=== PATIENT | female | born 1940 | race Two or more races ===

== ENCOUNTER 2024-08-09 10:51 | Day surgery (SDC) | payer OTHER, SELFPAY ==
[2024-08-09] VITALS (13 sets, daily range): BP systolic 104–187; BP diastolic 47–120; BMI 28.3
[2024-08-09 11:19] LABS: Hematocrit 36.5 % (37.0-47.0); Hemoglobin 12.1 g/dL (12.0-16.0); Mean Corp Hgb Conc. 33.2 g/dL (33.0-37.0); Mean Corpuscular Hgb 30.7 pg (27.0-31.0); Mean Corpuscular Volume 92.6 fL (81.0-99.0); Mean Platelet Volume 9.8 fL (7.4-10.4); Platelet Count 201 10^3/uL (130-400); Red Blood Cell Count 3.94 10^6/uL (4.20-5.40); Red Cell Dist. Width 12.8 % (11.5-14.5); White Blood Cell Count 6.4 10^3/uL (4.8-10.8)
[2024-08-09 11:33] LABS: Albumin 4.2 g/dl (3.5-5.0); Carbon Dioxide 30 mmol/L (22-30); Estimated Creatinine Clearance 65 ml/min; Glucose 105 mg/dl (70-99); Total Bilirubin 1.5 mg/dl (0.2-1.3); Total Protein 7.2 g/dl (6.3-8.2); eGFR > 60.00
[2024-08-09 11:34] LABS: ALT (SGPT) 14 U/L (0-35); AST (SGOT) 18 U/L (14-36); Alkaline Phosphatase 93 U/L (38-126); Blood Urea Nitrogen 16 mg/dl (7-17); Calcium 9.8 mg/dl (8.4-10.2); Chloride 104 mmol/L (98-107); Potassium 4.5 mmol/L (3.5-5.1); Sodium 141 mmol/L (135-145)
--- NOTE | 2024-08-09 14:39 | ITS.CL.PACE ---
[employer] - Pacemaker Implant
Pacemaker Implant
Procedure Report:
Date of Procedure: August 09, 2024
Patient : [id number]
Procedure: Pacemaker Implantation.
Indication: Sinoatrial exit block as well as unexplained syncope and presyncope documented heart rate at 30 bpm
�
Implants:
Pulse Generator: Medtronic; Model# W1 DR 01; SN: [id number]
RA Lead: Medtronic; Model# 4574; SN: [id number]
RV Lead: Medtronic; Model# 4074; SN: [id number]
�
Technique: A time out was performed. The procedure site was identified. The patient was anesthetized by the anesthesia service. Preoperative sedation was administered. The patient was prepped and draped in the usual fashion. Local anesthetic was
applied to the right prepectoral subcutaneous tissue. A 3 inch incision was made 2.5 inches below the right clavicle. A subcutaneous pocket was created with blunt and sharp dissection and hemostasis controlled with Bovie cautery. The right axillary
vein was accessed within the pocket without difficulty. Hemostasis was excellent. The leads were introduced with 7 Fr hemostatic peel away introducer sheaths. The ventricular lead was placed at the right ventricular apex. The atrial lead was placed
in the right atrial appendage. 10 volt pacing did not capture the diaphragm. The leads were secured to the pectoralis muscle and fascia. The leads were appropriately attached to the device. The pocket was irrigated with antibiotic solution. The
device and leads were placed in the pocket. The incision was closed in three layers with absorbable suture. The estimated blood loss was minimal. There were no complications.��
Fluoroscopy: 9.3 minutes 22.15 mGy
Lead Analysis:
RA lead: P: 1.8 mV; Threshold: 0.75 V @ 0.5��ms; Impedance: 722 ohms.
RV lead: R: 8.6 mV; Threshold: 0.5 V @ 0.5��ms; Impedance: 893 ohms.
�
Final Programming: AAIR�DDDR 60 to 130 bpm
�
Conclusion: Uncomplicated Medtronic pacemaker implant.
�
Recommendation: Routine post pacemaker care.
Copy: Dr. René Leyva
�
[2024-08-09] MEDS: TYLENOL 650 MG PO (15:48)
--- NOTE | 2024-08-09 16:56 | W.PN.UPDATE ---
Update Note
Progress Note Update
84 yo female s/p DC PPM (Same day). Site stable, tele SR RBBB, denies cp, CXR no PTX, leads in good position. She will continue atenolol. Activity restrictions reviewed. She will have incision check apt in 1 week. She is for d/c home after 530p and
another dose of antibiotics.
[2024-08-09] MEDS: ANCEF 5 IV (17:33)
== END 2024-08-09 17:34 | disposition home or self-care (01) ==
LOC: CATH 10:51
PROVIDERS: ATTENDING PHYSICIAN Internal Medicine Cardiovascular Disease; FAMILY PHYSICIAN Internal Medicine; OTHER PHYSICIAN Internal Medicine Cardiovascular Disease
DX: I45.5 Other specified heart block (principal); R55 Syncope and collapse; Z79.82 Long term (current) use of aspirin; Z79.899 Other long term (current) drug therapy; Z79.890 Hormone replacement therapy; I45.10 Unspecified right bundle-branch block
CPT/HCPCS: 33208; 71045; 80053; 85027; 93005; C1785; C1892; C1898; Q9967

== ENCOUNTER → 2024-08-16 14:06 | Outpatient (REF) | payer OTHER, SELFPAY | LOC: RAD 14:06 | PROVIDERS: ATTENDING PHYSICIAN Internal Medicine Cardiovascular Disease; FAMILY PHYSICIAN Internal Medicine | DX: Z95.0 Presence of cardiac pacemaker (principal) | CPT/HCPCS: 71046 ==